=== PATIENT | female | born 1960 | race Caucasian/White ===

== ENCOUNTER 2016-10-13 00:46 | Emergency (ER) ==
--- NOTE | 2016-10-13 01:15 | ED EKG INTERP ---
EKG Interpretation - EKG Time of EKG reading by physician:: 01:14 EKG Read and Signed by:: James Johnson EKG Interpretation (*Must complete 3 of following elements*): Abnormal ( Nonspecific ST abnormality) Rate: 79 Rhythm: Normal sinus rhythm Attestation - Scribe Verification/Attestation Scribe:: Nigel Fuentes Acting as Scribe for:: James Johnson Scribe documention review:: This chart was documented by a scribe and accurately reflects the service the provider performed and the decisions made by the provider.
[2016-10-13 01:53] LABS: MANUAL DIFF NEEDED? NO
[2016-10-13 01:55] LABS: BASO% 0.5 % (0.0-0.8); EOS# 0.15 X1000 (0.0-0.7); EOS% 1.7 % (0.0-10.0); HEMATOCRIT 41.4 % (37.0-47.0); HEMOGLOBIN 13.9 g/dL (12.0-16.0); LYMPH# 3.42 X1000 (1.2-3.4); LYMPH% 38.6 % (20.5-51.1); MCH 28.4 PG (27-31); MCHC 33.6 g/dL (33-37); MCV 84.7 FL (81-99); MONO# 0.65 X1000 (0.11-0.59); MONO% 7.3 % (1.7-9.3); MPV 10.2 FL (7.4-10.4); NEUT% 51.9 % (42.2-75.2); PLT 341 X1000 (130-400); RBC 4.89 XMIL (4.2-5.4)
[2016-10-13 02:10] LABS: AMYLASE 69 U/L (20-200); LIPASE 36 U/L (13-60)
[2016-10-13 02:13] LABS: ALBUMIN 4.4 g/dL (3.5-5.0); CALCIUM 9.4 mg/dL (8.8-10.2); POTASSIUM 3.7 mmol/L (3.5-5.1); TOTAL BILIRUBIN 0.23 mg/dL (0.20-1.00); TOTAL PROTEIN 7.6 g/dL (6.3-8.3)
[2016-10-13 02:56] LABS: URINE MICRO REVIEW NEEDED? NO; URINE SOURCE CLEAN CATCH
[2016-10-13 03:01] LABS: BILIRUBIN URINE NEGATIVE (NEGATIVE); BLOOD URINE NEGATIVE (NEGATIVE); COLOR STRAW; GLUCOSE URINE NEGATIVE (NEGATIVE); LEUKOCYTES URINE SMALL (NEGATIVE); NITRITE URINE NEGATIVE (NEGATIVE); PROTEIN URINE NEGATIVE (NEGATIVE); TURBIDITY URINE CLEAR (CLEAR); UROBILINOGEN URINE NORMAL (NORMAL)
--- NOTE | 2016-10-13 03:06 | PROVIDER DOCUMENTATION ---
HPI-Abdominal Pain/GI Problem - General Source: patient - History of Present Illness-ABD Nature of Presenting Problems: Pt is a 56 yof who presents to ER with CC of epigastric pain that radiates straight through her back with onset of 0500 Saturday morning. Pt reports that she took a shower and laid back down at 0600 and reports that she felt mildly better. pt reports that she still had her back pain throughout the day and it made her slightly nauseas. Abdominal Pain Onset Location: reports: epigastric Pain Radiation: reports: back Quality of Pain: reports: cramping, sharp Severity in ED: reports: moderate Onset/Duration: reports: this morning (0500) Timing: reports: improving Activities at Onset: reports: rest Associated Symptoms: reports: back/neck pain, chest pain, loss of appetite, nausea. denies: anxiety, arm pain, cough, diaphoresis, diarrhea, fatigue, fever /chills, genitourinary problems, headaches, heartburn, muscle aches, shortness of breath, vomiting, weakness, trouble walking Last BM: unsure Dark Stools Present?: reports: none noticed Rectal Bleeding: reports: none Rectal Pain: reports: none Emesis Description: reports: none <Nigel Fuentes - Last Filed: 10/13/16 03:01> <James Johnson - Last Filed: 10/13/16 03:55> - General Chief Complaint: General Adult Stated Complaint: BACK PAIN, POSS. GALLBLADDER PAIN Time Seen by Provider: 10/13/16 02:25 Allergies/Adverse Reactions: Patient Allergies Allergy/AdvReac Type Severity Reaction Status Date / Time No Known Allergies Allergy Verified 10/13/16 01:58 Home Medications: Home Medication List Medication Instructions Recorded Confirmed Last Taken Type Oxycodone HCl/Acetaminophen 1 each PO Q3HR #10 tablet 10/13/16 Unknown Rx [Percocet 7.5-325 mg Tablet] Review of Systems - Adult - REVIEW OF SYSTEMS - ADULT Constitutional: denies: chills, fever, fatique, night sweats, weight gain, weight loss Eyes: reports: no symptoms reported Ears, Nose, Mouth & Throat: reports: no symptoms reported Cardiovascular: reports: chest pain. denies: edema, heart murmur, irregular heart rate, orthopnea, palpitations, poor circulation, PND, syncope Respiratory: denies: chronic cough, cough, dyspnea on exertion, excessive sputum production, hemoptysis, pleurisy, shortness of breath, wheezing Gastrointestinal: reports: abdominal pain, nausea. denies: hematemesis, constipation, diarrhea, difficulty swallowing, frequent heartburn, poor appetite , rectal bleeding, vomiting Genitourinary: reports: no symptoms reported Musculoskeletal: reports: no symptoms reported Integumentary: reports: no symptoms reported Neurological: reports: no symptoms reported Psychiatric: reports: no symptoms reported Endocrine: reports: no symptoms reported Hematologic/Lymphatic: reports: no symptoms reported Allergic/Immunologic: reports: no symptoms reported All Other Systems: Reviewed and Negative <[email or web address] - Last Filed: 10/13/16 03:01> Past History - Adult - PAST MEDICAL HISTORY-ADULT Review of Records: reports: Nursing Assessment Review, Medications Reviewed - IMMUNIZATION STATUS Childhood Immunizations: See Nurse Assessment Flu Vaccine: See Nurse Assessment <Nigel Fuentes - Last Filed: 10/13/16 03:01> Physical Exam-General - PHYSICAL EXAM-ADULT Initial Vital Signs Reviewed: Yes - CONSTITUTIONAL General Appearance: appears well, alert, mild distress. negative: no apparent distress, moderate distress, severe distress, cachetic, obese, thin, anxious, lethargic, slow to respond, obtunded, combative - NECK Neck: non-tender, full range of motion, supple, normal inspection. negative: C- spine tenderness, limited range of motion, lymphadenopathy - RESPIRATORY Respiratory: chest non-tender, lungs clear, normal breath sounds. negative: respiratory distress, decreased breath sounds, accessory muscle use, wheezing - CARDIOVASCULAR Cardiovascular: normal peripheral pulses, regular rate, rhythm. negative: bradycardia, tachycardia, diastolic murmur, systolic murmur - GASTROINTESTINAL (ABDOMEN) Abdominal Exam: normal bowel sounds, non tender, soft. negative: abnormal bowel sounds, distended, tenderness, mass - LYMPHATIC Lymphatic: no adenopathy. negative: axilla node tender, cervical node tenderness, inguinal node tender - MUSCULOSKELETAL Back Exam: no CVA tenderness, no vertebral tenderness. negative: CVA tenderness , decreased range of motion, ecchymosis, muscle spasm, swelling, vertebral tenderness Extremity: normal range of motion, non-tender, normal gait. negative: deformity , erythema, inflammation, pedal edema, swelling, tenderness - NEUROLOGIC Neurologic: grossly normal, no motor/sensory deficits. negative: facial droop, focal weakness, motor weakness, sensory deficit - PSYCHIATRIC Psych/Mental Status: normal mood/affect, normal thought content, normal thought process, oriented x 3 <Nigel Fuentes - Last Filed: 10/13/16 03:01> Departure <Nigel Fuentes - Last Filed: 10/13/16 03:01> - Departure Time of Disposition Order: 03:50 Certified Medical Emergency: Emergent <James Johnson - Last Filed: 10/13/16 03:55> - Departure DIAGNOSIS: Gall bladder pain Disposition: HOME 01 Condition: Good Prescriptions: Oxycodone HCl/Acetaminophen [Percocet 7.5-325 mg Tablet] 1 each PO Q3HR #10 tablet Attestation - Scribe Verification/Attestation Scribe:: Nigel Fuentes Acting as Scribe for:: James Johnson Scribe documention review:: This chart was documented by a scribe and accurately reflects the service the provider performed and the decisions made by the provider. <Nigel Fuentes - Last Filed: 10/13/16 03:01> Physician Attestation
[2016-10-13 04:21] VITALS: BP 170/84
[2016-10-13 04:41] LABS: SP GRAVITY URINE 1.006; UR EPITHELIAL CELLS <10 /HPF (<10); URINE BACTERIA 1+ /HPF; URINE CULTURE NEEDED? YES; URINE RBC <10 /HPF (<10); URINE WBC <10 /HPF (<10)
--- NOTE | 2016-10-15 08:10 | EKG Report ---
Test Performed on : 10/13/2016 01:04:17 AM Test Reason : epigastric pain Blood Pressure : / mmHG Vent. Rate : 079 BPM Atrial Rate : 079 BPM P-R Int : 126 ms QRS Dur : 078 ms QT Int : 368 ms P-R-T Axes : 039 -04 029 degrees QTc Int : 421 ms Normal sinus rhythm. Nonspecific ST abnormality Abnormal ECG No previous ECGs available Unconfirmed Result
== END 2016-10-13 04:21 | disposition home or self-care (01) ==
LOC: ED 00:46
DX: K82.9 Disease of gallbladder, unspecified (principal); R10.13 Epigastric pain; R07.9 Chest pain, unspecified; R11.0 Nausea; R94.31 Abnormal electrocardiogram [ECG] [EKG]
CPT/HCPCS: 80053; 81001; 82150; 83690; 84484; 85025; 87088; 93005